=== PATIENT | male | born 1995 | race Hispanic/Latino ===

== ENCOUNTER 2022-04-05 10:51 | Inpatient (IN) | payer MEDICAID, OTHER ==
[~2022-04-05] VITALS: Ht 175.3 cm; Wt 104.9 kg
[2022-04-05] MEDS ORDERED: TRAZ-189 PO (11:13)
[2022-04-05] MEDS ORDERED: BENZ1TAB5 PO (11:13)
[2022-04-05] MEDS ORDERED: RISP-9 PO (11:13)
[2022-04-05 11:31] LABS: HEMATOCRIT 41.5 % (42.0-52.0); HEMOGLOBIN 14.7 g/dl (13.5-17.5); MEAN CORPUSCULAR HEMOGLOBIN 30.3 pg (27.0-33.0); MEAN CORPUSCULAR HGB CONC 35.4 g/dl (32.0-36.5); MEAN CORPUSCULAR VOLUME 85.6 fl (80.0-96.0); PLATELET COUNT, AUTOMATED 137 10^3/uL (150-450); RED BLOOD COUNT 4.85 10^6/uL (4.30-6.10); WHITE BLOOD COUNT 11.9 10^3/uL (4.0-10.0)
[2022-04-05 11:57] LABS: THYROID STIMULATING HORMONE 0.828 uIU/ML (0.55-4.78)
[2022-04-05 12:00] LABS: ETHYL ALCOHOL (ETHANOL) < 0.003 % (0.000-0.010)
[2022-04-05 12:02] LABS: ACETAMINOPHEN LEVEL < 2.0 UG/ML (10.0-20.0); ALBUMIN 3.9 G/DL (3.2-5.2); ALKALINE PHOSPHATASE 62 U/L (46-116); ALT/SGPT 38 U/L (7.0-40); AST/SGOT 40 U/L (<34); BILIRUBIN,DIRECT 0.2 MG/DL (<0.4); BILIRUBIN,TOTAL 0.6 MG/DL (0.3-1.2); SALICYLATE LEVEL < 3.0 MG/DL (<30); TOTAL PROTEIN 6.8 G/DL (5.7-8.2)
[2022-04-05 12:43] LABS: AMPHETAMINES LEVEL URINE NEGATIVE (NEGATIVE); BARBITURATES URINE NEGATIVE (NEGATIVE); BENZODIAZEPINES URINE NEGATIVE (NEGATIVE); COCAINE METABOLITE URINE NEGATIVE (NEGATIVE); METHADONE URINE NEGATIVE (NEGATIVE); OPIATES URINE NEGATIVE (NEGATIVE); PHENCYCLIDINE URINE NEGATIVE (NEGATIVE)
[2022-04-05 12:50] LABS: CANNABINOIDS URINE POSITIVE (NEGATIVE)
[2022-04-05 13:23] LABS: BLOOD UREA NITROGEN 14 MG/DL (9-23); CALCIUM LEVEL 8.7 MG/DL (8.5-10.1); CARBON DIOXIDE LEVEL 25 MMOL/L (20-31); CHLORIDE LEVEL 107 MMOL/L (98-107); CREATININE FOR GFR 1.06 MG/DL (0.70-1.30); GLOMERULAR FILTRATION RATE > 60.0 (>60); GLUCOSE, FASTING 106 MG/DL (60-100); POTASSIUM SERUM 3.9 MMOL/L (3.5-5.1); SODIUM LEVEL 138 MMOL/L (136-145)
[2022-04-05] MEDS ORDERED: OLANZapine ORAL DISINTEGRATING TAB 5MG PO ONE (15:35)
[2022-04-05] MEDS ORDERED: ACETAMINOPHEN TAB 650MG DOSE (2X325MG) PO ONE (15:35)
[2022-04-05] MEDS ORDERED: LORazepam 2 MG TAB PO STA (15:35)
[2022-04-05] MEDS ORDERED: HOME MED LIST COMPLETE! XX SCH (18:50)
[2022-04-06] MEDS ORDERED: BENZTROPINE 1 MG TAB PO SCH (09:00)
[2022-04-06] MEDS ORDERED: risperiDONE 2 MG TAB PO SCH (09:00)
[2022-04-06] MEDS ORDERED: BENZTROPINE MESYLATE 2MG/2ML VIAL IM ONE (15:15)
[2022-04-06] MEDS ORDERED: MOM 30ML SUSPENSION UDC PO PRN (15:15)
[2022-04-06] MEDS ORDERED: MAALOX 30 ML SUSP *UDC PO PRN (15:15)
[2022-04-06] MEDS ORDERED: ACETAMINOPHEN TAB 650MG DOSE (2X325MG) PO ONE (15:20)
[2022-04-06 17:41] VITALS: BP 128/68
[2022-04-06] MEDS ORDERED: traZODone 100 MG TAB PO SCH (21:00)
[2022-04-06] MEDS: traZODone 100 MG TAB PO SCH (21:58)
[2022-04-06] MEDS: risperiDONE 2 MG TAB PO SCH (21:58)
[2022-04-06] MEDS ORDERED: OLANZapine ORAL DISINTEGRATING TAB 5MG PO PRN (23:35)
[2022-04-06] MEDS ORDERED: LORazepam 2 MG TAB PO ONE (23:45)
[2022-04-07] MEDS ORDERED: diphenhydrAMINE 50MG CAP PO ONE (01:30)
[2022-04-07] MEDS: BENZTROPINE 1 MG TAB PO SCH (09:00)
[2022-04-07] MEDS: ACETAMINOPHEN TAB 650MG DOSE (2X325MG) PO PRN (09:36)
[2022-04-07] MEDS: risperiDONE 2 MG TAB PO SCH ×2 (09:36→20:23)
[2022-04-07 17:25] VITALS: BP 120/82
[2022-04-07] MEDS: traZODone 100 MG TAB PO SCH (20:23)
[2022-04-08 06:44] VITALS: BP 118/68
[2022-04-08] MEDS: BENZTROPINE 1 MG TAB PO SCH (08:54)
[2022-04-08] MEDS: risperiDONE 2 MG TAB PO SCH ×2 (08:54→20:14)
[2022-04-08] MEDS: ACETAMINOPHEN TAB 650MG DOSE (2X325MG) PO PRN (08:56)
[2022-04-08 16:25] VITALS: BP 140/79
[2022-04-08] MEDS: traZODone 100 MG TAB PO SCH (20:14)
[2022-04-08] MEDS ORDERED: diphenhydrAMINE 50MG CAP PO SCH (21:00)
[2022-04-09 06:19] VITALS: BP 120/83
[2022-04-09] MEDS: BENZTROPINE 1 MG TAB PO SCH (09:55)
[2022-04-09] MEDS: risperiDONE 2 MG TAB PO SCH (09:55)
[2022-04-09] MEDS ORDERED: DIPH50CA PO (10:55)
[2022-04-09] MEDS ORDERED: RISP-9 PO (10:55)
[2022-04-09] MEDS ORDERED: BENZ1TAB5 PO (10:55)
[2022-04-09] MEDS ORDERED: TRAZ-257 PO (10:55)
== END 2022-04-09 12:46 | disposition home or self-care (01) | DRG 753 ==
LOC: M ED 10:51 → M ED INP 04-06 15:14 → M PSY 04-06 16:31
PROVIDERS: ADMIT Psychiatry & Neurology Psychiatry; ATTEND Psychiatry & Neurology Psychiatry
DX: F31.9 Bipolar disorder, unspecified (principal); Z91.14 Patient's other noncompliance with medication regimen; F17.200 Nicotine dependence, unspecified, uncomplicated; Z79.899 Other long term (current) drug therapy

== ENCOUNTER 2022-05-26 18:54 | Emergency (ER) | payer MEDICAID, OTHER ==
[~2022-05-26 18:54] MED LIST: BENZ1TAB5 PO; DIPH50CA PO; RISP-9 PO; TRAZ-189 PO; TRAZ-257 PO
[2022-05-26] MEDS ORDERED: BOOSTRIX/ADACEL VACCINE (DIPHTH/PERTUSS/ACELL/TETANUS) 0.5ML SYR IM.IMMUN ONE (20:20)
[2022-05-26 22:47] VITALS: BP 137/87
== END 2022-05-26 22:57 | disposition home or self-care (01) ==
LOC: M ED 18:54
DX: S02.401A Maxillary fracture, unspecified side, initial encounter for closed fracture (principal); S02.2XXA Fracture of nasal bones, initial encounter for closed fracture; S52.91 Unspecified fracture of right forearm; Y04.8XXA Assault by other bodily force, initial encounter; Y92.149 Unspecified place in prison as the place of occurrence of the external cause; F31.9 Bipolar disorder, unspecified; F17.200 Nicotine dependence, unspecified, uncomplicated; Z79.899 Other long term (current) drug therapy

== ENCOUNTER 2022-06-05 07:27 | Day surgery (SDC) | payer OTHER ==
[~2022-06-05] VITALS: Ht 175.3 cm; Wt 101.6 kg
[2022-06-05] MEDS ORDERED: ACET1TAB55 PO (08:06)
[2022-06-05] MEDS ORDERED: COCAINE 4% 4ML NASAL SOLUTION BTL As Ordered ONE (08:40)
[2022-06-05] MEDS ORDERED: LIDOCAINE W/EPINEPHRINE 1% 20ML VIAL As Ordered ONE (08:41)
[2022-06-05] MEDS ORDERED: OXYMETAZOLINE 0.05% NASAL SPRAY (AFRIN) As Ordered ONE (08:41)
[2022-06-05] MEDS ORDERED: propofoL 200 MG/20 ML VIAL As Ordered ONE ×2 (08:45→09:16)
[2022-06-05] MEDS ORDERED: MIDAZOLAM INJ 2MG/2ML VIAL As Ordered ONE (08:45)
[2022-06-05] MEDS ORDERED: LIDOCAINE 2% 100MG/5ML SDV (FOR ANES.) As Ordered ONE (08:45)
[2022-06-05] MEDS ORDERED: ACETAMINOPHEN 1000MG 100ML IV BAG As Ordered ONE (08:45)
[2022-06-05] MEDS ORDERED: fentaNYL 100 MCG/2 ML INJECTION As Ordered ONE (08:45)
[2022-06-05] MEDS ORDERED: ONDANSETRON 4MG 2ML VIAL As Ordered ONE (08:45)
[2022-06-05] MEDS ORDERED: ROCURONIUM BROMIDE 50MG/5ML VIAL As Ordered ONE (08:45)
[2022-06-05] MEDS ORDERED: SUCCINYLCHOLINE 100MG/5ML SYRINGE As Ordered ONE (08:45)
[2022-06-05] MEDS ORDERED: ePHEDrine SULFATE 25 MG/5 ML(5MG/ML) SYRINGE As Ordered ONE (09:16)
[2022-06-05] MEDS ORDERED: PHENYLephrine 500MCG 5ML (100MCG/ML) SYRINGE As Ordered ONE (09:16)
[2022-06-05] MEDS ORDERED: HYDROMORPHONE HCL 0.5 MG/ 0.5 ML SYRINGE IV PRN (09:25)
[2022-06-05] MEDS ORDERED: oxyCODONE 5MG TAB PO PRN (09:25)
[2022-06-05] MEDS ORDERED: ONDANSETRON 4MG 2ML VIAL IV PRN (09:25)
[2022-06-05] MEDS ORDERED: LR 1,000 ML IV SCH (09:25)
[2022-06-05] MEDS ORDERED: fentaNYL 100 MCG/2 ML INJECTION IV PRN (09:25)
[2022-06-05 10:45] VITALS: BP 119/77
== END 2022-06-05 11:00 | disposition home or self-care (01) ==
LOC: M SDC 07:27
PROVIDERS: ATTEND Otolaryngology
DX: S02.2XXA Fracture of nasal bones, initial encounter for closed fracture (principal); Y04.0XXA Assault by unarmed brawl or fight, initial encounter; Y92.89 Other specified places as the place of occurrence of the external cause; Y93.9 Activity, unspecified; Y99.9 Unspecified external cause status; F12.10 Cannabis abuse, uncomplicated; F41.9 Anxiety disorder, unspecified; Z79.899 Other long term (current) drug therapy
CPT/HCPCS: 21320; C9143; J0131; J0330; J1100; J2250; J2370; J2405; J3010

== ENCOUNTER 2022-09-06 09:20 | Emergency (ER) | payer OTHER ==
[~2022-09-06] VITALS: Ht 175.3 cm; Wt 98.1 kg
[~2022-09-06 09:20] MED LIST changes: +ACET1TAB55 PO
[2022-09-06] MEDS ORDERED: ONDANSETRON 4MG 2ML VIAL IV ONE (10:00)
[2022-09-06] MEDS ORDERED: MORPHINE 4 MG/ML 1ML VIAL IV ONE (10:00)
[2022-09-06] MEDS ORDERED: TRAZ1TAB12 PO (10:40)
[2022-09-06] MEDS ORDERED: PERCOCET 5MG/325MG TAB PO ONE ×2 (11:05→13:45)
[2022-09-06 13:52] VITALS: BP 116/79; TEMP 96.9; O2SAT 99
== END 2022-09-06 14:15 | disposition short-term general hospital (02) ==
LOC: M ED 09:20
DX: S02.31XA Fracture of orbital floor, right side, initial encounter for closed fracture (principal); W18.40XA Slipping, tripping and stumbling without falling, unspecified, initial encounter; Y92.149 Unspecified place in prison as the place of occurrence of the external cause; F31.9 Bipolar disorder, unspecified; Z79.899 Other long term (current) drug therapy